=== PATIENT | female | born 1945 | race Hispanic/Latino ===

== ENCOUNTER 2017-11-18 17:31 | Inpatient (IN) | payer MEDICARE ==
[~2017-11-18] VITALS: Ht 160 cm; Wt 74.8 kg
[2017-11-18 18:15] LABS: APPEARANCE,URINE Clear (CLEAR); BILIRUBIN,URINE Small (NEGATIVE); GLUCOSE, URINE (UA) Negative (NEGATIVE); KETONES,URINE Negative (NEGATIVE); LEUKOCYTE ESTERASE ,URINE Moderate (NEGATIVE); NITRATE,URINE Positive (NEGATIVE); OCCULT BLOOD,URINE Negative (NEGATIVE); PROTEIN,URINE Negative (NEGATIVE)
[2017-11-18 18:16] LABS: COLOR,URINE ORANGE (YELLOW)
[2017-11-18 18:24] LABS: BACTERIA,URINE Few /HPF (None Seen); RBC,URINE 0-1 /HPF (0-1)
[2017-11-18 18:54] LABS: BASOPHILS % (AUTO) 0.7 % (0.0-5.0); HEMATOCRIT 38.2 % (36-48); LYMPHOCYTES % (AUTO) 28.5 % (21.0-51.0); MEAN CORPUSCULAR HEMOGLOBIN 31.2 pg (27.0-33.0); MONOCYTES % (AUTO) 4.7 % (3.0-13.0); NEUTROPHILS % (AUTO) 65.1 % (40.0-77.0); PLATELET COUNT (AUTO) 166 K/uL (130-400); RED BLOOD CELL COUNT(AUTO) 4.29 MIL/uL (4.00-5.50); RED CELL DISTRIBUTION WIDTH 13.6 % (11.0-15.5); WHITE BLOOD COUNT (AUTO) 5.3 K/uL (4.8-10.8)
[2017-11-18 19:07] LABS: CREATININE 0.9 mg/dL (0.5-1.5); POTASSIUM 3.3 mmol/L (3.5-5.1)
[2017-11-18 19:11] LABS: BILIRUBIN,TOTAL 0.5 mg/dL (0.2-1.0); TOTAL PROTEIN, SERUM 7.8 g/dL (6.0-8.3)
[2017-11-18] MEDS ORDERED: SODIUM CHLORIDE 0.9% 1000ML 1,000 ML IV ONE (21:35)
[2017-11-18] MEDS ORDERED: MEROPENEM 500 MG VIAL ONE (21:35)
[2017-11-18] MEDS ORDERED: MORPHINE SULFATE 2 MG/ML 1ML SYG ONE (21:53)
[2017-11-18 22:10] VITALS: BP 159/72
[2017-11-18] MEDS ORDERED: POTASSIUM CHLORIDE 10% ELIXIR 20 MEQ/15 ML UDCUP PO PRN (22:45)
[2017-11-18] MEDS ORDERED: HYDRALAZINE HCL 20 MG/ML VIAL IV PRN (22:45)
[2017-11-18] MEDS ORDERED: POTASSIUM CHLORIDE 20MEQ/100ML 100 ML IV PRN (22:45)
[2017-11-18] MEDS ORDERED: LIDOCAINE HCL-MPF 1% 2ML VIAL IVP PRN (22:45)
[2017-11-18] MEDS ORDERED: ONDANSETRON HCL 4 MG/2 ML VIAL IV PRN (22:45)
[2017-11-18] MEDS: INSULIN HUMULIN R 100 UNIT/ML 3ML SQ SCH (22:45)
[2017-11-18] MEDS ORDERED: MEROPENEM 500MG+NS 50ML 50 ML IV SCH (22:45)
[2017-11-18] MEDS ORDERED: MORPHINE SULFATE 2 MG/ML 1ML SYG IV PRN (22:45)
[2017-11-18] MEDS ORDERED: POTASSIUM CHLORIDE 20 MEQ ERTAB PO PRN (22:45)
[2017-11-19] MEDS ORDERED: ZOLPIDEM TARTRATE 5 MG TAB ONE (01:37)
[2017-11-19] MEDS ORDERED: ZOLPIDEM TARTRATE 5 MG TAB PO PRN (01:45)
[2017-11-19] MEDS ORDERED: METO25TA6 PO (02:08)
[2017-11-19] MEDS ORDERED: ISOS30TA6 PO (02:08)
[2017-11-19] MEDS ORDERED: GABA-531 PO (02:08)
[2017-11-19] MEDS ORDERED: LORA10TA7 PO (02:08)
[2017-11-19] MEDS ORDERED: ATOR40TA71 PO (02:08)
[2017-11-19] MEDS ORDERED: ROPI2TAB29 PO (02:08)
[2017-11-19] MEDS ORDERED: TOPI25TA48 PO (02:08)
[2017-11-19] MEDS ORDERED: BUPR300T54 PO (02:08)
[2017-11-19] MEDS ORDERED: LORA2TAB2 PO (02:08)
[2017-11-19] MEDS ORDERED: ESCI10TA54 PO (02:08)
[2017-11-19] MEDS ORDERED: PANT40TA25 PO (02:08)
[2017-11-19 03:58] VITALS: BP 145/66
[2017-11-19] MEDS: SODIUM CHLORIDE 0.9% 1000ML 1,000 ML IV SCH ×3 (04:38→20:27)
[2017-11-19] MEDS: INSULIN HUMULIN R 100 UNIT/ML 3ML SQ SCH ×4 (04:45→20:26)
[2017-11-19] MEDS ORDERED: MEROPENEM 500 MG VIAL ONE (05:50)
[2017-11-19] MEDS ORDERED: DEXTROSE 50%-WATER 50 ML DISP.SYRIN IV ONE (05:53)
[2017-11-19 05:57] LABS: HEMATOCRIT 34.7 % (36-48); MEAN CORPUSCULAR HEMOGLOBIN 31.1 pg (27.0-33.0); MEAN CORPUSCULAR HGB CONC 34.8 g/dL (32.0-36.0); MEAN CORPUSCULAR VOLUME 89.3 fL (79-99); PLATELET COUNT (AUTO) 145 K/uL (130-400); RED BLOOD CELL COUNT(AUTO) 3.88 MIL/uL (4.00-5.50); RED CELL DISTRIBUTION WIDTH 13.7 % (11.0-15.5); WHITE BLOOD COUNT (AUTO) 4.8 K/uL (4.8-10.8)
[2017-11-19 06:16] LABS: CREATININE 0.8 mg/dL (0.5-1.5); POTASSIUM 3.7 mmol/L (3.5-5.1)
[2017-11-19 07:30] VITALS: BP 151/70
[2017-11-19] MEDS ORDERED: INSLAN SQ ×2 (09:55→13:58)
[2017-11-19 11:00] VITALS: BP 155/76
[2017-11-19] MEDS ORDERED: POTASSIUM CHLORIDE 20MEQ/100ML 100 ML IV PRN (11:30)
[2017-11-19] MEDS ORDERED: MORPHINE SULFATE 2 MG/ML 1ML SYG IVP PRN (11:30)
[2017-11-19] MEDS ORDERED: LIDOCAINE HCL-MPF 1% 2ML VIAL IVP PRN (11:30)
[2017-11-19] MEDS ORDERED: MORPHINE SULFATE 4 MG/1ML SYG IVP PRN (11:30)
[2017-11-19] MEDS ORDERED: ACETAMINOPHEN-CODEINE 300/30MG TAB PO PRN ×2 (11:30)
[2017-11-19] MEDS ORDERED: POTASSIUM CHLORIDE 10% ELIXIR 20 MEQ/15 ML UDCUP PO PRN (11:30)
[2017-11-19] MEDS ORDERED: POTASSIUM CHLORIDE 20 MEQ ERTAB PO PRN (11:30)
[2017-11-19] MEDS ORDERED: GADOBENATE DIMEGLUMINE 20 ML IV ONE (12:01)
[2017-11-19] MEDS: ONDANSETRON HCL MDV 20ML 2 MG/ML VIAL IVP PRN (12:58)
[2017-11-19] MEDS ORDERED: INSU100C14 SQ (13:54)
[2017-11-19] MEDS: GABAPENTIN 300 MG CAPSULE PO SCH ×2 (14:00→20:22)
[2017-11-19 16:00] VITALS: BP 148/74
[2017-11-19] MEDS: MEROPENEM 500 MG VIAL IVP SCH ×2 (18:48→20:19)
[2017-11-19 20:00] VITALS: BP 188/76
[2017-11-19] MEDS: METOPROLOL TARTRATE 25 MG TAB PO SCH (20:21)
[2017-11-19] MEDS: ATORVASTATIN CALCIUM 40 MG TABLET PO SCH (20:21)
[2017-11-19] MEDS: ROPINIROLE HCL 1 MG TABLET PO SCH (20:21)
[2017-11-19] MEDS: PANTOPRAZOLE SODIUM 40 MG TABLET.DR PO SCH (20:22)
[2017-11-19] MEDS: ISOSORBIDE MONO 30MG TAB SR PO SCH (20:22)
[2017-11-19] MEDS: TOPIRAMATE 25 MG TABLET PO SCH (20:22)
[2017-11-19] MEDS: LORAZEPAM 1 MG TABLET PO SCH (22:42)
[2017-11-19 23:38] VITALS: BP 155/58
[2017-11-20] VITALS (26 sets, daily range): BP systolic 68–154; BP diastolic 44–70
[2017-11-20] MEDS: MEROPENEM 500 MG VIAL IVP SCH (04:19)
[2017-11-20] MEDS: INSULIN HUMULIN R 100 UNIT/ML 3ML SQ SCH ×4 (04:45→21:22)
[2017-11-20] MEDS: SODIUM CHLORIDE 0.9% 1000ML 1,000 ML IV SCH (05:34)
[2017-11-20 06:18] LABS: HEMATOCRIT 34.5 % (36-48); MEAN CORPUSCULAR HEMOGLOBIN 31.7 pg (27.0-33.0); MEAN CORPUSCULAR HGB CONC 35.4 g/dL (32.0-36.0); MEAN CORPUSCULAR VOLUME 89.5 fL (79-99); PLATELET COUNT (AUTO) 158 K/uL (130-400); RED BLOOD CELL COUNT(AUTO) 3.85 MIL/uL (4.00-5.50); RED CELL DISTRIBUTION WIDTH 13.5 % (11.0-15.5); WHITE BLOOD COUNT (AUTO) 4.3 K/uL (4.8-10.8)
[2017-11-20 06:23] LABS: CREATININE 0.8 mg/dL (0.5-1.5); POTASSIUM 3.8 mmol/L (3.5-5.1)
[2017-11-20] MEDS: LORATADINE 10 MG TABLET PO SCH (09:00)
[2017-11-20] MEDS: CITALOPRAM 20 MG TABLET PO SCH (09:00)
[2017-11-20] MEDS: GABAPENTIN 300 MG CAPSULE PO SCH ×3 (09:00→20:05)
[2017-11-20] MEDS: PANTOPRAZOLE SODIUM 40 MG TABLET.DR PO SCH (09:00)
[2017-11-20] MEDS: BUPROPION HCL 150 MG TABLET.SA PO SCH (09:00)
[2017-11-20] MEDS: ISOSORBIDE MONO 30MG TAB SR PO SCH ×2 (10:10→19:55)
[2017-11-20] MEDS: METOPROLOL TARTRATE 25 MG TAB PO SCH ×2 (10:10→19:55)
[2017-11-20] MEDS ORDERED: GLYCOPYRROLATE 0.2 MG/ML 5 ML VIAL ONE (11:25)
[2017-11-20] MEDS ORDERED: PROPOFOL 10 MG/ML 20ML VIAL IV ONE (11:25)
[2017-11-20] MEDS ORDERED: LIDOCAINE HCL 1% 20 ML VIAL ONE (11:25)
[2017-11-20] MEDS ORDERED: PROPOFOL 1000 MG/100 ML 100 ML IV ONE (11:40)
[2017-11-20] MEDS: ONDANSETRON HCL MDV 20ML 2 MG/ML VIAL IVP PRN (15:45)
[2017-11-20] MEDS: LEVOFLOXACIN 500 MG/D5W 100 ML 100 ML IV SCH (15:46)
[2017-11-20] MEDS ORDERED: INSULIN HUMULIN R 100 UNIT/ML 3ML SQ ONE (17:26)
[2017-11-20] MEDS: ROPINIROLE HCL 1 MG TABLET PO SCH (19:55)
[2017-11-20] MEDS: ATORVASTATIN CALCIUM 40 MG TABLET PO SCH (19:55)
[2017-11-20] MEDS: TOPIRAMATE 25 MG TABLET PO SCH (19:56)
[2017-11-20] MEDS: LORAZEPAM 1 MG TABLET PO SCH (22:26)
[2017-11-21] VITALS (7 sets, daily range): BP systolic 103–133; BP diastolic 56–68
[2017-11-21] MEDS: SODIUM CHLORIDE 0.9% 1000ML 1,000 ML IV SCH ×3 (01:42→21:02)
[2017-11-21] MEDS: INSULIN HUMULIN R 100 UNIT/ML 3ML SQ SCH ×4 (04:45→21:08)
[2017-11-21 06:00] LABS: HEMATOCRIT 30.4 % (36-48); MEAN CORPUSCULAR HGB CONC 34.5 g/dL (32.0-36.0); MEAN CORPUSCULAR VOLUME 89.9 fL (79-99); PLATELET COUNT (AUTO) 133 K/uL (130-400); RED BLOOD CELL COUNT(AUTO) 3.38 MIL/uL (4.00-5.50); RED CELL DISTRIBUTION WIDTH 13.5 % (11.0-15.5); WHITE BLOOD COUNT (AUTO) 7.8 K/uL (4.8-10.8)
[2017-11-21 06:09] LABS: CREATININE 0.8 mg/dL (0.5-1.5); POTASSIUM 3.9 mmol/L (3.5-5.1)
[2017-11-21] MEDS ORDERED: MORPHINE SULFATE IR 15 MG TAB 15 MG TABLET PO PRN (09:15)
[2017-11-21] MEDS ORDERED: MORPHINE SULFATE 15 MG TABLET.SA PO PRN (09:15)
[2017-11-21] MEDS: CITALOPRAM 20 MG TABLET PO SCH (09:21)
[2017-11-21] MEDS: PANTOPRAZOLE SODIUM 40 MG TABLET.DR PO SCH (09:21)
[2017-11-21] MEDS: BUPROPION HCL 150 MG TABLET.SA PO SCH (09:21)
[2017-11-21] MEDS: ISOSORBIDE MONO 30MG TAB SR PO SCH ×2 (09:21→21:04)
[2017-11-21] MEDS: LORATADINE 10 MG TABLET PO SCH (09:21)
[2017-11-21] MEDS: METOPROLOL TARTRATE 25 MG TAB PO SCH ×2 (09:21→21:04)
[2017-11-21] MEDS: GABAPENTIN 300 MG CAPSULE PO SCH ×3 (09:21→21:03)
[2017-11-21] MEDS: LEVOFLOXACIN 500 MG/D5W 100 ML 100 ML IV SCH (09:22)
[2017-11-21] MEDS ORDERED: BENZOCAINE/MENTH/CETYLPYRD CL 1 EACH LOZENGE MM PRN (09:30)
[2017-11-21] MEDS: MORPHINE SULFATE 15 MG TABLET.SA PO SCH ×2 (10:18→21:04)
[2017-11-21] MEDS ORDERED: IOPAMIDOL-370 75 ML VIAL IV ONE (10:57)
[2017-11-21] MEDS ORDERED: DIATR MEGLU/DIATRIZOATE SODIUM 30 ML BOTTLE ONE (10:57)
[2017-11-21] MEDS: ONDANSETRON HCL MDV 20ML 2 MG/ML VIAL IVP PRN (13:41)
[2017-11-21] MEDS: DOCUSATE SODIUM 100 MG CAP PO SCH (21:03)
[2017-11-21] MEDS: ROPINIROLE HCL 1 MG TABLET PO SCH (21:03)
[2017-11-21] MEDS: TOPIRAMATE 25 MG TABLET PO SCH (21:03)
[2017-11-21] MEDS: ATORVASTATIN CALCIUM 40 MG TABLET PO SCH (21:04)
[2017-11-21] MEDS: LORAZEPAM 1 MG TABLET PO SCH (23:05)
[2017-11-22 03:15] VITALS: BP 104/58
[2017-11-22] MEDS: INSULIN HUMULIN R 100 UNIT/ML 3ML SQ SCH ×4 (04:45→22:45)
[2017-11-22 08:00] VITALS: BP 101/54
[2017-11-22] MEDS: GABAPENTIN 300 MG CAPSULE PO SCH ×3 (10:34→21:13)
[2017-11-22] MEDS: DOCUSATE SODIUM 100 MG CAP PO SCH ×2 (10:34→21:13)
[2017-11-22] MEDS: ISOSORBIDE MONO 30MG TAB SR PO SCH ×2 (10:35→21:13)
[2017-11-22] MEDS: LORATADINE 10 MG TABLET PO SCH (10:35)
[2017-11-22] MEDS: METOPROLOL TARTRATE 25 MG TAB PO SCH ×2 (10:35→21:16)
[2017-11-22] MEDS: BUPROPION HCL 150 MG TABLET.SA PO SCH (10:35)
[2017-11-22] MEDS: PANTOPRAZOLE SODIUM 40 MG TABLET.DR PO SCH (10:35)
[2017-11-22] MEDS: CITALOPRAM 20 MG TABLET PO SCH (10:35)
[2017-11-22] MEDS: LEVOFLOXACIN 500 MG/D5W 100 ML 100 ML IV SCH (10:37)
[2017-11-22] MEDS: MORPHINE SULFATE 15 MG TABLET.SA PO SCH ×2 (10:37→21:14)
[2017-11-22 12:00] VITALS: BP 105/47
[2017-11-22 16:00] VITALS: BP 90/47
[2017-11-22 19:38] VITALS: BP 116/60
[2017-11-22] MEDS: ROPINIROLE HCL 1 MG TABLET PO SCH (21:12)
[2017-11-22] MEDS: LORAZEPAM 1 MG TABLET PO SCH (21:12)
[2017-11-22] MEDS: ATORVASTATIN CALCIUM 40 MG TABLET PO SCH (21:14)
[2017-11-22] MEDS: TOPIRAMATE 25 MG TABLET PO SCH (21:16)
[2017-11-23] MEDS ORDERED: LACTULOSE 20 GM/30 ML UDCUP PO PRN (01:45)
[2017-11-23 03:34] VITALS: BP 92/53
[2017-11-23] MEDS: INSULIN HUMULIN R 100 UNIT/ML 3ML SQ SCH (04:45)
[2017-11-23 08:00] VITALS: BP 110/61
[2017-11-23] MEDS: ISOSORBIDE MONO 30MG TAB SR PO SCH (09:00)
[2017-11-23] MEDS: MORPHINE SULFATE 15 MG TABLET.SA PO SCH (10:06)
[2017-11-23] MEDS: DOCUSATE SODIUM 100 MG CAP PO SCH (10:06)
[2017-11-23] MEDS: CITALOPRAM 20 MG TABLET PO SCH (10:07)
[2017-11-23] MEDS: BUPROPION HCL 150 MG TABLET.SA PO SCH (10:07)
[2017-11-23] MEDS: GABAPENTIN 300 MG CAPSULE PO SCH (10:07)
[2017-11-23] MEDS: METOPROLOL TARTRATE 25 MG TAB PO SCH (10:07)
[2017-11-23] MEDS: LORATADINE 10 MG TABLET PO SCH (10:07)
[2017-11-23] MEDS: PANTOPRAZOLE SODIUM 40 MG TABLET.DR PO SCH (10:07)
[2017-11-23] MEDS: LEVOFLOXACIN 500 MG/D5W 100 ML 100 ML IV SCH (10:42)
[2017-11-23 12:00] VITALS: BP 107/46
== END 2017-11-23 13:40 | disposition home or self-care (01) | DRG 436 ==
LOC: EDH 17:31 → OBSVTOIN 19:37 → EDHIP 19:37 → 3DH 20:53
PROVIDERS: ADMIT Internal Medicine; ATTEND Internal Medicine
PROC: 0FBG8ZX Excision of Pancreas, Via Natural or Artificial Opening Endoscopic, Diagnostic (ICD-10-PCS; principal; 2017-11-20)
DX: C25.0 Malignant neoplasm of head of pancreas (principal); N39.0 Urinary tract infection, site not specified; E44.0 Moderate protein-calorie malnutrition; E11.42 Type 2 diabetes mellitus with diabetic polyneuropathy; E66.01 Morbid (severe) obesity due to excess calories; D64.9 Anemia, unspecified; E78.5 Hyperlipidemia, unspecified; I10 Essential (primary) hypertension; Z98.84 Bariatric surgery status; Z90.710 Acquired absence of both cervix and uterus; Z68.29 Body mass index [BMI] 29.0-29.9, adult; Z88.0 Allergy status to penicillin; Z91.041 Radiographic dye allergy status; Z98.41 Cataract extraction status, right eye; Z98.42 Cataract extraction status, left eye; Z80.0 Family history of malignant neoplasm of digestive organs
CPT/HCPCS: 36415; 43232; 74160; 74176; 74183; 80048; 80053; 81001; 82378; 82550; 82948; 83690; 84484; 85025; 85027; 86316; 88173; 88305; A4218; A9577; C9113; J1815; J1956; J2185; J2270; J2704; J3490; J7030; J7070; Q9963; Q9967

== ENCOUNTER 2017-12-08 19:48 | Inpatient (IN) | payer MEDICARE ==
[~2017-12-08] VITALS: Ht 162.6 cm; Wt 76.4 kg
[~2017-12-08 19:48] MED LIST: ATOR40TA71 PO; BUPR300T54 PO; ESCI10TA54 PO; GABA-531 PO; INSLAN SQ; INSU100C14 SQ; ISOS30TA6 PO; LORA10TA7 PO; LORA2TAB2 PO; METO25TA6 PO; PANT40TA25 PO; ROPI2TAB29 PO; TOPI25TA48 PO
[2017-12-08 20:07] LABS: BASOPHILS % (AUTO) 0.5 % (0.0-5.0); EOSINOPHILS % (AUTO) 0.1 % (0.0-8.0); HEMATOCRIT 38.4 % (36-48); LYMPHOCYTES % (AUTO) 14.4 % (21.0-51.0); MEAN CORPUSCULAR HEMOGLOBIN 30.2 pg (27.0-33.0); MEAN CORPUSCULAR HGB CONC 33.9 g/dL (32.0-36.0); MEAN CORPUSCULAR VOLUME 89.2 fL (79-99); MONOCYTES % (AUTO) 4.2 % (3.0-13.0); NEUTROPHILS % (AUTO) 80.8 % (40.0-77.0); NUCLEATED RED BLOOD CELLS 0.1 % (0.0-0.19); PLATELET COUNT (AUTO) 196 K/uL (130-400); RED BLOOD CELL COUNT(AUTO) 4.31 MIL/uL (4.00-5.50); RED CELL DISTRIBUTION WIDTH 13.9 % (11.0-15.5); WHITE BLOOD COUNT (AUTO) 4.7 K/uL (4.8-10.8)
[2017-12-08 20:53] LABS: CREATININE 0.9 mg/dL (0.5-1.5); POTASSIUM 3.5 mmol/L (3.5-5.1)
[2017-12-08 21:08] LABS: ALBUMIN 3.5 g/dL (3.5-5.0); BILIRUBIN,TOTAL 0.5 mg/dL (0.2-1.0); TOTAL PROTEIN, SERUM 7.5 g/dL (6.0-8.3)
[2017-12-09 00:20] LABS: APPEARANCE,URINE Clear (CLEAR); BILIRUBIN,URINE Negative (NEGATIVE); COLOR,URINE Yellow (YELLOW); GLUCOSE, URINE (UA) Negative (NEGATIVE); KETONES,URINE Negative (NEGATIVE); LEUKOCYTE ESTERASE ,URINE Negative (NEGATIVE); NITRATE,URINE Negative (NEGATIVE); OCCULT BLOOD,URINE Negative (NEGATIVE); PH,URINE 7.5 (5.0-8.0); PROTEIN,URINE Negative (NEGATIVE); UROBILINOGEN,URINE 0.2 mg/dL (0.2-1.0)
[2017-12-09] MEDS ORDERED: DEXTROSE 5 %-0.45 % NACL 1,000 ML IV ONE (00:45)
[2017-12-09] MEDS ORDERED: OXYC-586 PO (02:13)
[2017-12-09] MEDS ORDERED: TIMO.5OS (02:13)
[2017-12-09] MEDS ORDERED: FENT25PAT TD (02:13)
[2017-12-09] MEDS ORDERED: DEXL60CA3 PO (02:13)
[2017-12-09] MEDS ORDERED: LATA2.5D2 (02:13)
[2017-12-09] MEDS ORDERED: TYL3B PO (02:13)
[2017-12-09] MEDS ORDERED: LIDOCAINE HCL-MPF 1% 2ML VIAL IJ PRN (03:45)
[2017-12-09] MEDS ORDERED: CLONIDINE HCL 0.1 MG TABLET PO PRN (03:45)
[2017-12-09] MEDS ORDERED: ONDANSETRON HCL 4 MG/2 ML VIAL IVP PRN (03:45)
[2017-12-09] MEDS ORDERED: LACTULOSE 20 GM/30 ML UDCUP PO PRN (03:45)
[2017-12-09] MEDS ORDERED: POTASSIUM CHLORIDE 20MEQ/100ML 100 ML IV PRN (03:45)
[2017-12-09] MEDS ORDERED: GLUCAGON 1MG KIT 1 MG ML IM PRN (03:45)
[2017-12-09] MEDS ORDERED: ACETAMINOPHEN 325 MG TAB PO PRN ×2 (03:45)
[2017-12-09] MEDS ORDERED: POTASSIUM CHLORIDE 10% ELIXIR 20 MEQ/15 ML UDCUP PO PRN (03:45)
[2017-12-09 03:51] LABS: AMPHET/METH SCREEN,URINE NEGATIVE (NEGATIVE); BARBITURATE SCREEN, URINE NEGATIVE (NEGATIVE); BENZODIAZEPINES SCREEN,URINE NEGATIVE (NEGATIVE); CANNABINOID SCREEN,URINE NEGATIVE (NEGATIVE); COCAINE SCREEN,URINE NEGATIVE (NEGATIVE); OPIATE SCREEN,URINE NEGATIVE (NEGATIVE); PHENCYCLIDINE SCREEN,URINE NEGATIVE (NEGATIVE)
[2017-12-09] MEDS ORDERED: ONDANSETRON HCL MDV 20ML 2 MG/ML VIAL IVP PRN (03:53)
[2017-12-09] MEDS: DEXTROSE 5 %-0.45 % NACL 1,000 ML IV SCH (04:15)
[2017-12-09 04:28] VITALS: BP 152/76
[2017-12-09] MEDS: INSULIN R NPO SSI SQ SCH ×3 (06:00→16:25)
[2017-12-09] MEDS ORDERED: KETOROLAC TROMETHAMINE 15MG/ML IV SCH (06:00)
[2017-12-09 06:10] LABS: HEMATOCRIT 33.6 % (36-48); MEAN CORPUSCULAR HEMOGLOBIN 32.1 pg (27.0-33.0); MEAN CORPUSCULAR HGB CONC 36.3 g/dL (32.0-36.0); MEAN CORPUSCULAR VOLUME 88.4 fL (79-99); PLATELET COUNT (AUTO) 166 K/uL (130-400); WHITE BLOOD COUNT (AUTO) 5.8 K/uL (4.8-10.8)
[2017-12-09] MEDS: DEXTROSE 50%-WATER 50 ML DISP.SYRIN IV PRN ×2 (06:21→10:49)
[2017-12-09 06:25] LABS: CREATININE 0.8 mg/dL (0.5-1.5); POTASSIUM 3.1 mmol/L (3.5-5.1)
[2017-12-09 06:41] LABS: HEMOGLOBIN A1C 6.5 % (4.0-6.0)
[2017-12-09] MEDS ORDERED: INSULIN R PO SS1 SQ SCH (07:30)
[2017-12-09 08:00] VITALS: BP 140/78
[2017-12-09] MEDS ORDERED: KETOROLAC TROMETHAMINE 30MG/ML ONE (08:13)
[2017-12-09] MEDS: FAMOTIDINE 20MG TAB 20 MG TAB PO SCH ×2 (08:24→21:47)
[2017-12-09 11:57] VITALS: BP 146/67
[2017-12-09] MEDS: DEXTROSE 5%-WATER 1,000 ML IV SCH (12:51)
[2017-12-09] MEDS: POTASSIUM CHLORIDE 20 MEQ ERTAB PO PRN ×2 (12:54→15:55)
[2017-12-09 16:00] VITALS: BP 157/60
[2017-12-09 20:00] VITALS: BP 162/75
[2017-12-09 20:46] VITALS: BP 152/68
[2017-12-09] MEDS: TOPIRAMATE 25 MG TABLET PO SCH (21:00)
[2017-12-09] MEDS: PANTOPRAZOLE SODIUM 40 MG TABLET.DR PO SCH (21:47)
[2017-12-09] MEDS: ROPINIROLE HCL 1 MG TABLET PO SCH (21:47)
[2017-12-09] MEDS: ATORVASTATIN CALCIUM 40 MG TABLET PO SCH (21:48)
[2017-12-09] MEDS: METOPROLOL TARTRATE 25 MG TAB PO SCH (21:48)
[2017-12-09] MEDS: ISOSORBIDE MONO 30MG TAB SR PO SCH (21:52)
[2017-12-09] MEDS: KETOROLAC TROMETHAMINE 15MG/ML IV PRN (22:47)
[2017-12-10] VITALS (8 sets, daily range): BP systolic 134–169; BP diastolic 64–80
[2017-12-10] MEDS: DEXTROSE 5 %-0.45 % NACL 1,000 ML IV SCH (00:15)
[2017-12-10] MEDS: KETOROLAC TROMETHAMINE 15MG/ML IV PRN ×2 (05:29→14:57)
[2017-12-10] MEDS: INSULIN R NPO SSI SQ SCH ×5 (05:32→21:24)
[2017-12-10] MEDS: BUPROPION HCL 150 MG TABLET.SA PO SCH (08:59)
[2017-12-10] MEDS: LORATADINE 10 MG TABLET PO SCH (08:59)
[2017-12-10] MEDS: FAMOTIDINE 20MG TAB 20 MG TAB PO SCH ×2 (08:59→20:30)
[2017-12-10] MEDS: METOPROLOL TARTRATE 25 MG TAB PO SCH (08:59)
[2017-12-10] MEDS: ISOSORBIDE MONO 30MG TAB SR PO SCH ×2 (08:59→20:28)
[2017-12-10] MEDS: ***HM***(Dexlansoprazole (Dexilant) 60 MG) PO SCH (09:00)
[2017-12-10] MEDS: OXYCODONE HCL 5 MG TAB PO PRN ×2 (09:03→21:35)
[2017-12-10] MEDS: DEXTROSE 5%-WATER 1,000 ML IV SCH (09:03)
[2017-12-10] MEDS: TOPIRAMATE 25 MG TABLET PO SCH ×2 (20:28→20:29)
[2017-12-10] MEDS: ATORVASTATIN CALCIUM 40 MG TABLET PO SCH (20:30)
[2017-12-10] MEDS: ROPINIROLE HCL 1 MG TABLET PO SCH (20:30)
[2017-12-10] MEDS: PANTOPRAZOLE SODIUM 40 MG TABLET.DR PO SCH (20:30)
[2017-12-11] VITALS: BP 154/82
[2017-12-11] MEDS: KETOROLAC TROMETHAMINE 15MG/ML IV PRN (00:35)
[2017-12-11 04:00] VITALS: BP 144/66
[2017-12-11] MEDS: OXYCODONE HCL 5 MG TAB PO PRN (04:22)
[2017-12-11 06:12] LABS: CREATININE 0.8 mg/dL (0.5-1.5); POTASSIUM 4.3 mmol/L (3.5-5.1)
[2017-12-11] MEDS: INSULIN R NPO SSI SQ SCH ×2 (06:37→11:36)
[2017-12-11 08:01] VITALS: BP 157/67
[2017-12-11] MEDS: ***HM***(Dexlansoprazole (Dexilant) 60 MG) PO SCH (09:00)
[2017-12-11] MEDS: FAMOTIDINE 20MG TAB 20 MG TAB PO SCH (09:03)
[2017-12-11] MEDS: BUPROPION HCL 150 MG TABLET.SA PO SCH (09:03)
[2017-12-11] MEDS: ISOSORBIDE MONO 30MG TAB SR PO SCH (09:03)
[2017-12-11] MEDS: LORATADINE 10 MG TABLET PO SCH (09:03)
[2017-12-11] MEDS ORDERED: TOPI15CA7 PO (10:05)
[2017-12-11] MEDS ORDERED: GABA-529 PO (10:05)
[2017-12-11] MEDS ORDERED: ESCI5TAB10 PO (10:05)
[2017-12-11 12:00] VITALS: BP 143/62
== END 2017-12-11 17:03 | disposition home or self-care (01) | DRG 639 ==
LOC: EDH 19:48 → OBSVTOIN 23:53 → EDHIP 23:53 → 4AH 12-09 02:15 → 3CH 12-10 18:28
PROVIDERS: ADMIT Internal Medicine; ATTEND Internal Medicine
DX: E11.649 Type 2 diabetes mellitus with hypoglycemia without coma (principal); F22 Delusional disorders; R41.82 Altered mental status, unspecified; E11.42 Type 2 diabetes mellitus with diabetic polyneuropathy; E78.5 Hyperlipidemia, unspecified; I10 Essential (primary) hypertension; Z98.84 Bariatric surgery status; E66.9 Obesity, unspecified; E11.69 Type 2 diabetes mellitus with other specified complication; H40.9 Unspecified glaucoma; T40.605A Adverse effect of unspecified narcotics, initial encounter; Y92.89 Other specified places as the place of occurrence of the external cause; Z85.07 Personal history of malignant neoplasm of pancreas; Z90.710 Acquired absence of both cervix and uterus; Z88.0 Allergy status to penicillin; Z98.49 Cataract extraction status, unspecified eye; Z68.28 Body mass index [BMI] 28.0-28.9, adult
CPT/HCPCS: 36415; 70450; 71045; 80048; 80053; 80305; 81003; 82947; 82948; 83036; 84132; 85025; 85027; 93005; J1815; J1885; J3480; J3490; J7042; J7070